=== PATIENT | female | born 1945 | race Caucasian/White ===

== ENCOUNTER → 2016-11-21 | Outpatient (CLI) | payer BC ==
[~2016-11-21] MED LIST: LEVO100T84 PO; LRT5 PO
--- NOTE | 2016-11-21 15:30 | MAMMOGRAPHY REPORT ---
BILATERAL DIGITAL SCREENING MAMMOGRAM WITH CAD: 11/21/2016 CLINICAL HISTORY: Routine screening. Patient has no complaints. TECHNIQUE: Bilateral CC and MLO views were obtained. Current study was also evaluated with a Comput er Aided Detection (CAD) system. COMPARISON: Comparison is made to exam dated: 04/25/2007. BREAST COMPOSITION: There are scattered areas of fibroglandular density in both breasts. FINDINGS: There are scattered benign round calcifications in the breast. A stable grouping of punct ate microcalcifications in the lateral left breast is similar dating back to at least 04/25/2007, an d therefore likely benign. No new suspicious mass, architectural distortion or cluster of microcalc ifications is seen. IMPRESSION: ACR BI-RADS CATEGORY 1: NEGATIVE There is no mammographic evidence of malignancy. A 1 year screening mammogram is recommended. The p atient will receive written notification of the results. Approximately 10% of breast cancers are not detected with mammography. A negative mammographic repor t should not delay biopsy if a clinically suggestive mass is present. Anita Cramer M.D. ay/:11/21/2016 15:10:03 Manager Of Planning: Ya MONTEZ)([place]), [facility] letter sent: Normal 1/2 BI-RADS Code: ACR BI-RADS Category 1: Negative
== END | disposition home or self-care (01) ==
LOC: C.MAMM 13:44
PROVIDERS: ATTEND Internal Medicine
DX: Z12.31 Encounter for screening mammogram for malignant neoplasm of breast (principal)

== ENCOUNTER → 2016-11-22 | Outpatient (CLI) | payer BC ==
[2016-11-22 10:27] LABS: ALT/SGPT 19 U/L (12-78); AST/SGOT 18 U/L (15-37); BLOOD UREA NITROGEN 19 mg/dl (7-18); CALCIUM 8.8 mg/dl (8.5-10.1); CARBON DIOXIDE 26 mmol/L (21-32); CHLORIDE 110 mmol/L (98-107); GLUCOSE 86 mg/dl (70-99); POTASSIUM 3.9 mmol/L (3.5-5.1); SODIUM 144 mmol/L (136-145); TRIGLYCERIDES 107 mg/dl (0-150); VERY LOW DENSITY LIPOPROT CALC 21 mg/dl
[2016-11-22 10:40] LABS: ALB/GLOB RATIO 0.8 (0.9-2); ALKALINE PHOSPHATASE 130 U/L (45-117); CHOLESTEROL 152 mg/dl (0-200); CHOLESTEROL/HDL RATIO 3.2; HDL CHOLESTEROL 48 mg/dl; LDL CHOLESTEROL CALCULATED 83 mg/dl
== END | disposition home or self-care (01) ==
LOC: C.LAB1850 09:04
PROVIDERS: ATTEND Internal Medicine
DX: E78.1 Pure hyperglyceridemia (principal); E55.9 Vitamin D deficiency, unspecified; M85.80 Other specified disorders of bone density and structure, unspecified site; E03.9 Hypothyroidism, unspecified

== ENCOUNTER → 2017-03-08 | Outpatient (CLI) | payer BC ==
--- NOTE | 2017-03-08 10:25 | DIAGNOSTIC IMAGING REPORT ---
ABDOMINAL ULTRASOUND, RIGHT UPPER QUADRANT HISTORY: Right upper quadrant pain. Diarrhea. COMPARISON: None. FINDINGS: Pancreas: The pancreatic tail is obscured by overlying bowel gas. The remaining portions of the pancreas are within normal limits. Liver: The liver is echogenic consistent with fatty change. There is a 1.7 cm cyst within the right hepatic lobe adjacent to the gallbladder fossa. Gallbladder: No gallbladder wall thickening. There are few gallstones with the largest measuring 1.8 cm. CBD: 4 mm. Right kidney: No hydronephrosis. A 2 cm upper pole cyst. IMPRESSION: 1. Cholelithiasis. No gallbladder wall thickening. 2. Hepatic and right renal cysts. Electronically signed by: Justus Wise M.D. 03/08/2017 10:23 AM Dictated Date/Time: 03/08/2017 10:20 AM
== END | disposition home or self-care (01) ==
LOC: C.ULTR 09:04
PROVIDERS: ATTEND Internal Medicine
DX: K80.20 Calculus of gallbladder without cholecystitis without obstruction (principal); N28.1 Cyst of kidney, acquired; K76.89 Other specified diseases of liver; R19.7 Diarrhea, unspecified; R10.11 Right upper quadrant pain

== ENCOUNTER → 2017-08-30 | Outpatient (CLI) | payer BC ==
[2017-08-30 10:13] LABS: HEMATOCRIT 43.7 % (37-47); MEAN CELL VOLUME 91.6 fL (80-100); MEAN CORPUSCULAR HGB CONC 32.7 g/dl (32-36); MEAN PLATELET VOLUME 11.1 fL (7.4-10.4); PLATELET COUNT 198 K/uL (130-400); RED BLOOD COUNT 4.77 M/uL (4.2-5.4); WHITE BLOOD COUNT 5.76 K/uL (4.8-10.8)
[2017-08-30 10:41] LABS: BLOOD UREA NITROGEN 19 mg/dl (7-18); BUN/CREATININE RATIO 17.2 (10-20); CALCIUM 8.9 mg/dl (8.5-10.1); CARBON DIOXIDE 27 mmol/L (21-32); CHLORIDE 107 mmol/L (98-107); CREATININE 1.11 mg/dl (0.60-1.20); GLUCOSE 84 mg/dl (70-99); SODIUM 140 mmol/L (136-145)
[2017-08-30 10:54] LABS: ALB/GLOB RATIO 0.8 (0.9-2); ALKALINE PHOSPHATASE 141 U/L (45-117); ALT/SGPT 21 U/L (12-78); AST/SGOT 20 U/L (15-37); CHOLESTEROL 173 mg/dl (0-200); CHOLESTEROL/HDL RATIO 3.4; HDL CHOLESTEROL 51 mg/dl; LDL CHOLESTEROL CALCULATED 93 mg/dl; TRIGLYCERIDES 144 mg/dl (0-150); VERY LOW DENSITY LIPOPROT CALC 29 mg/dl
== END | disposition home or self-care (01) ==
LOC: C.LAB1850 09:25
PROVIDERS: ATTEND Internal Medicine
DX: E55.9 Vitamin D deficiency, unspecified (principal); E03.9 Hypothyroidism, unspecified; E78.1 Pure hyperglyceridemia; R19.7 Diarrhea, unspecified

== ENCOUNTER → 2017-10-03 | Outpatient (CLI) | payer BC ==
[~2017-10-03] MED LIST changes: +ASPCH81X PO; +CHOL20009 PO; +LEVO125T5 PO
--- NOTE | 2017-10-03 15:28 | DIAGNOSTIC IMAGING REPORT ---
CERVICAL SPINE 2 OR 3 VIEWS HISTORY: Pain. Neuropathy. R20.0 Numbness of [id number] COMPARISON: None. FINDINGS: The cervical spine is visualized from C1 through the superior endplate of T1. There is no fracture. Mild reversal of the normal cervical curvature. Moderate degenerative disc change primarily from C5 through C7. Prevertebral soft tissues and the atlantodens interval are intact. IMPRESSION: Moderate degenerative disc change from C5 through C7. Muscle spasm. Osteopenia. The above report was generated using voice recognition software. It may contain grammatical, syntax or spelling errors. Electronically signed by: Shabbir Orr M.D. 10/03/2017 3:26 PM Dictated Date/Time: 10/03/2017 3:26 PM
== END | disposition home or self-care (01) ==
LOC: C.RAD1850 15:03
PROVIDERS: ATTEND Internal Medicine
DX: R20.0 Anesthesia of skin (principal); M50.322 Other cervical disc degeneration at C5-C6 level; M50.323 Other cervical disc degeneration at C6-C7 level; M62.838 Other muscle spasm; M85.88 Other specified disorders of bone density and structure, other site

== ENCOUNTER → 2017-10-22 | Day surgery (SDC) | payer BC ==
[2017-10-04 08:56] VITALS: Ht 167.6 cm; Wt 86.4 kg
[~2017-10-22] VITALS: Ht 167.6 cm; Wt 86.4 kg
[~2017-10-22] MED LIST changes: -LEVO100T84 PO; +LIDOCAINE HCL 2% 2 ML VIAL (20MG/ML) ONE; -LRT5 PO; +PROPOFOL IV EMULSION 10 MG/ML 20 ML VIAL IV ONE
--- NOTE | 2017-10-22 12:05 | Endo History and Physical ---
History & Physical Date of Service: Oct 22, 2017. Chief Complaint: 10 YEAR SCREENING Referring Physician: DR WRAY History of Present Illness 72 yo CF who presents for screening colonoscopy. Past Surgical History Hx Cardiac Surgery: No Hx Internal Defibrillator: No Hx Pacemaker: No Hx Abdominal Surgery: Yes (TUBAL LIGATION) Hx of Implantable Prosthesis: No Hx Post-Op Nausea and Vomiting: No Hx Cancer Surgery: No Hx Thoracic Surgery: No Hx Orthopedic: No Hx Urinary Tract Surgery: No Family History None Social History Smoking Status: Never Smoker Hx Substance Use: No Hx Alcohol Use: No Allergies Coded Allergies: NO KNOWN DRUG ALLERGIES (Verified Allergy, Unknown, ., 10/22/17) Current Medications Reported Home Medications Medications Dose Route/Sig Max Daily Dose Days Date Category Aspirin Chewable (Aspirin) 81 Mg Chew 2 Tab PO QAM 10/04/17 Reported Vitamin D (Cholecalciferol) 2,000 Unit Tab 1 Tab PO QAM 10/04/17 Reported Levothyroxine Sodium 125 Mcg Tab 1 Tab PO HS 10/04/17 Reported Vital Signs Weight (Kilograms): 86.36 Height (Feet): 5 Height (Inches): 6 Date Time Temp Pulse Resp B/P (MAP) Pulse Ox O2 Delivery O2 Flow Rate FiO2 10/22/17 11:40 36.5 79 20 158/82 (107) 95 Room Air Physical Exam General Appearance: WD/WN, no apparent distress Respiratory/Chest: Auscultation: breath sounds normal Cardiovascular: Heart Auscultation: RRR Abdomen: Bowel Sounds: normal Inspection & Palpation: soft, non-distended, no tenderness, guarding & rebound Assessment and Plan Assessment: 72 yo CF who presents for screening colonoscopy. Plan: Proceed with colonoscopy.
--- NOTE | 2017-10-22 13:21 | GI REPORT ---
Procedure Date: 10/22/2017 12:12 PM Procedure: Colonoscopy Indications: Screening for colorectal malignant neoplasm Medicines: Monitored Anesthesia Care Complications: No immediate complications. Estimated Blood Loss: Estimated blood loss: none. Procedure: Pre-Anesthesia Assessment: - Prior to the procedure, a History and Physical was performed, and patient medications and allergies were reviewed. The patient's tolerance of previous anesthesia was also reviewed. The risks and benefits of the procedure and the sedation options and risks were discussed with the patient. All questions were answered, and informed consent was obtained. Prior Anticoagulants: The patient has taken no previous anticoagulant or antiplatelet agents. ASA Grade Assessment: III - A patient with severe systemic disease. After reviewing the risks and benefits, the patient was deemed in satisfactory condition to undergo the procedure. After I obtained informed consent, the scope was passed under direct vision. Throughout the procedure, the patient's blood pressure, pulse, and oxygen saturations were monitored continuously. The scope was introduced through the anus and advanced to the terminal ileum. The colonoscopy was performed without difficulty. The patient tolerated the procedure well. The quality of the bowel preparation was good. The terminal ileum, ileocecal valve, appendiceal orifice, and rectum were photographed. Findings: The perianal and digital rectal examinations were normal. A 4 mm polyp was found in the transverse colon. The polyp was sessile. The polyp was removed with a cold snare. Resection and retrieval were complete. Multiple small-mouthed diverticula were found in the sigmoid colon. Non-bleeding internal hemorrhoids were found during retroflexion. The hemorrhoids were small. Impression: - One 4 mm polyp in the transverse colon, removed with a cold snare. Resected and retrieved. - Diverticulosis in the sigmoid colon. - Non-bleeding internal hemorrhoids. Recommendation: - Resume previous diet. - Continue present medications. - Repeat colonoscopy for surveillance based on pathology results. - Return to primary care physician as previously scheduled. Scott Mae, DO 10/22/2017 1:21:23 PM This report has been signed electronically. Note Initiated On: 10/22/2017 12:12 PM I attest to the content of the Intraoperative Record and orders documented therein, exceptions below
--- NOTE | 2017-10-22 13:30 | Discharge Instructions ---
Endoscopy Patient Instructions Date / Procedure(s) Performed Oct 22, 2017. Colonoscopy Allergy Information Coded Allergies: NO KNOWN DRUG ALLERGIES (Verified Allergy, Unknown, ., 10/22/17) Discharge Date / Findings Oct 22, 2017. Colon polyp Diverticulosis Internal hemorrhoids Medication Instructions Stopped Medication(s): ASPIRIN-10/21/17 OK to resume all medications today as prescribed Reported Home Medications Medications Dose Route/Sig Max Daily Dose Days Date Category Aspirin Chewable (Aspirin) 81 Mg Chew 2 Tab PO QAM 10/04/17 Reported Vitamin D (Cholecalciferol) 2,000 Unit Tab 1 Tab PO QAM 10/04/17 Reported Levothyroxine Sodium 125 Mcg Tab 1 Tab PO HS 10/04/17 Reported Provider Instructions Activity Restrictions - No exercising or heavy lifting for 24 hours. - Do not drink alcohol the day of the procedure. - Do not drive a car or operate machinery until the day after the procedure. - Do not make any important decisions or sign important papers in 24 hours after the procedure. Following Day: - Return to full activity which may include returning to work/school. Diet Start your diet with liquids and light foods (jello, soup, juice, toast). Then eat your usual diet if not nauseated. Treatment For Common After Affects For mild abdominal pain, bloating, or excessive gas: - Rest - Eat lightly - Lie on right side Follow-Up Information Follow-up with DR WRAY as scheduled Anesthesia Information What You Should Know You have had a procedure that required some medicine to reduce anxiety and discomfort. This treatment is called moderate sedation. After receiving the treatment, you may be sleepy, but you will be able to breathe on your own. The effects of the treatment may last for several hours. Follow these instructions along with Activity/Diet recommendations noted above: * Do NOT do anything where dizziness or clumsiness would be dangerous. * Rest quietly at home today, then you can be up and about tomorrow. * Have a responsible person stay with you the rest of today. * You may have had an I.V. today. If so, you may take the dressing off later today. Recommendations Call your doctor if: * Trouble breathing * Continuous vomiting for more than 24 hours * Temperature above 101 degrees * Severe abdominal pain or bloating * Pain not relieved by pain medicine ordered * There is increased drainage or redness from any incision * A large amount of rectal bleeding greater than 2-3 tablespoons. (If you had a polyp/s removed or have hemorrhoids, a small amount of blood - from the rectum is to be expected.) * You have any unanswered questions or concerns. IN THE EVENT OF A SERIOUS EMERGENCY, GO TO THE NEAREST EMERGENCY ROOM Your discharge instructions were prepared by provider Scott Mae. Patient Instructions Signature Page Arlet Hodges Patient (or Guardian) Signature/Date: I have read and understand the instructions given to me by my caregivers. Caregiver/RN/Doctor Signature/Date: The above-named patient and/or guardian has received patient instructions on this date. + Original Patient Signature Page (only) stays with chart. Please make copy for patient.
--- NOTE | 2017-10-22 13:44 | Anesthesiology Progress Note ---
Anesthesia Post Op Note Date & Time Oct 22, 2017 at 13:43 Vital Signs Pain Intensity: 0 Vital Signs Past 12 Hours Date Time Temp Pulse Resp B/P (MAP) Pulse Ox O2 Delivery O2 Flow Rate FiO2 10/22/17 13:27 79 18 118/69 (85) 96 Room Air 10/22/17 13:12 82 12 112/66 (81) 96 Room Air 10/22/17 11:40 36.5 79 20 158/82 (107) 95 Room Air Notes Mental Status: alert / awake / arousable, participated in evaluation Pt Amnestic to Procedure: Yes Nausea / Vomiting: adequately controlled Pain: adequately controlled Airway Patency, RR, SpO2: stable & adequate BP & HR: stable & adequate Hydration State: stable & adequate Anesthetic Complications: no major complications apparent
[2017-10-22 13:51] VITALS: BP 125/62; PULSE 79; O2SAT 96
== END | disposition home or self-care (01) ==
LOC: C.GI 11:19
PROVIDERS: ATTEND Internal Medicine
DX: Z12.11 Encounter for screening for malignant neoplasm of colon (principal); D12.3 Benign neoplasm of transverse colon; K57.30 Diverticulosis of large intestine without perforation or abscess without bleeding; K64.8 Other hemorrhoids; I77.1 Stricture of artery; K21.9 Gastro-esophageal reflux disease without esophagitis; E66.9 Obesity, unspecified; M19.90 Unspecified osteoarthritis, unspecified site; E03.9 Hypothyroidism, unspecified; Z79.82 Long term (current) use of aspirin; Z90.89 Acquired absence of other organs; Z86.73 Personal history of transient ischemic attack (TIA), and cerebral infarction without residual deficits

== ENCOUNTER → 2017-10-23 | Outpatient (CLI) | payer BC ==
[~2017-10-23] MED LIST changes: +OPTIRAY 320 IV PRN
--- NOTE | 2017-10-23 08:32 | DIAGNOSTIC IMAGING REPORT ---
CT ANGIOGRAPHY NECK COMBO CT DOSE: 948.80 mGy.cm CLINICAL HISTORY: Carotid stenosis TECHNIQUE: Unenhanced images were obtained through the neck. CT angiography was performed during the administration of 94 cc of Optiray 320. MIP imaging was performed. A dose lowering technique was utilized adhering to the principles of ALARA. COMPARISON STUDY: None. FINDINGS: There is no evidence of significant stenosis involving the right common or internal carotid artery. There is no evidence of dissection or aneurysm. There is no evidence of significant stenosis involving the left common or internal carotid artery. There is no evidence of dissection or aneurysm. There is mild calcific plaque at the level of the left carotid bulb. There is no evidence of vertebral artery stenosis or dissection. There is a right maxillary sinus air-fluid level. There is a multinodular thyroid. IMPRESSION: 1. No evidence of carotid or vertebral artery stenosis or dissection. Electronically signed by: Alex Olvio M.D. 10/23/2017 8:31 AM Dictated Date/Time: 10/23/2017 8:24 AM
== END | disposition home or self-care (01) ==
LOC: C.CTS 08:05
PROVIDERS: ATTEND Physician Assistant
DX: I65.23 Occlusion and stenosis of bilateral carotid arteries (principal)

== ENCOUNTER 2020-12-20 01:38 | Inpatient (IN) ==
[2020-12-20 02:21] LABS: Basophils # (auto) 0.02 K/uL (0-0.2); Basophils % (auto) 0.3 %; Eosinophils # (auto) 0.16 K/uL (0-0.5); Eosinophils % (auto) 2.5 %; Hematocrit (blood only) 40.9 % (37-47); Immature Granulocytes # (auto) 0.01 K/uL (0.00-0.02); Immature Granulocytes % (auto) 0.2 %; Lymphocytes # (auto) 1.68 K/uL (1.2-3.4); Lymphocytes % (auto) 25.7 %; Mean Corpuscular Hemoglobin 30.4 pg (25-34); Mean Corpuscular Hgb Conc 34.2 g/dL (32-36); Mean Corpuscular Volume 88.9 fL (80-100); Mean Platelet Volume 10.6 fL (7.4-10.4); Monocytes # (auto) 0.64 K/uL (0.11-0.59); Monocytes % (auto) 9.8 %; Neutrophils # (auto) 4.02 K/uL (1.4-6.5); Neutrophils % (auto) 61.5 %; Platelet Count 107 K/uL (130-400); RDW Coefficient of Variation 12.9 % (11.5-14.5); RDW Standard Deviation 41.7 fL (36.4-46.3); White Blood Count 6.53 K/uL (4.8-10.8)
--- NOTE | 2020-12-20 02:32 | Emergency Department Note ---
History of Present Illness General Chief complaint: Neuro Symptoms/Deficit Stated complaint: SLURRED SPEECH,DIZZINESS,HOT SWEATY,NAUSEA Time Seen by Provider: 12/20/20 01:47 Source: patient Mode of arrival: ambulatory Limitations: no limitations History of Present Illness Provider complaint: Dizziness, flushing, headache Onset (ago): hour(s) 2 Location: head Radiation: non-radiation Severity: moderate Maximum Pain Intensity: 4 Quality: + constant Relieved By: + none Exacerbated By: + movement Associated symptoms: + headaches; no chest pain, no cough, no fever/chills, no nausea/vomiting and no shortness of breath Treatments prior to arrival: none This is a 75-year-old female presents the emergency department after an abrupt onset of dizziness and overwhelming feeling of warmth with accompanying sweating that began at midnight. Patient states she has had intermittent similar episodes in the past although she felt this was more severe. She states she has previously seen neurology due to intermittent episodes of dizziness, headaches, and double vision. She had previously seen Dr. Ford, however could not tolerate the medications that he had recommended. After new imaging had also revealed a small aneurysm, she was referred to neurosurgery at [place] who she sees once a year. Patient states she does take a blood thinner due to history of DVTs. Patient also takes medication for thyroid disorder. Patient denies any change in her medications or other new medications. Patient denies any recent illness. Patient states the dizziness and sweating were present for about 10 minutes and then began to improve, and have since resolved. However, as though symptoms were improving, she began to develop a headache. Patient states the headache is frontal and behind her eyes bilaterally. Patient states Dr. Ford told her she gets basilar migraines. On review of EMR while we were talking, Dr. Ford's note also lists ocular migraines. Patient denies any recent trauma or injury. No other recent fevers, chills, URI symptoms, or other known sick contacts. She denies any accompanying numbness or tingling, neck or back pain, chest pain, trouble breathing. Patient states she feels as though her mouth is very dry and it is affecting her speech. Pt seen during a time of high acuity and national emergency pandemic while wearing PPE. Home Medications Medication Instructions Recorded Confirmed Type cholecalciferol (vitamin D3) 1,000 unit PO DAILY 06/02/18 12/20/20 History [Vitamin D3] levothyroxine 125 mcg tablet 125 mcg PO DAILY #90 tab 09/19/20 12/20/20 Rx rivaroxaban 20 mg tablet 20 mg PO DAILY #90 tab 12/06/20 12/20/20 Rx Allergies Allergy/AdvReac Type Severity Reaction Status Date / Time verapamil AdvReac Intermediate hypotension Verified 12/20/20 02:24 Past Med/Surg History Medical History (Updated 12/21/20 @ 07:19 by Vero Banks DO) Asthma Dermatographia Diverticulosis Essential hypertriglyceridemia History of blood clots History of broken leg History of mitral valve insufficiency Hypothyroidism Internal hemorrhoids Osteopenia Transient ischemic attack, acute Tubular adenoma of colon Vitamin D deficiency Surgical History History of tonsillectomy Family History Sister Breast cancer Hypertension Uncle Stroke Mother Diabetes Brother Hypertension Other Kidney stone Seizures Denies family history of Colon cancer Ovarian cancer Prostate cancer Myocardial infarction Social History Smoking Status: Never smoker Second Hand Exposure: No; Hx Alcohol Use: No Hx Substance Use: No Preferred Language: Bur[place]ian Communication Ability: Effective Visual Impairment: No Limitations Hearing Ability: Normal Nat Instructor Required: No Beliefs That Will Affect Care: None marital status: Current Living Situation: Family current occupational status: retired Feels Safe at Home: Yes Dental Care, Regularly: Yes Physical Activity Frequency: Daily Seatbelt Use: always Sunscreen Use: Yes Assistive Devices: Glasses Review of Systems See HPI for pertinent positives & negatives. and A total of 10 systems reviewed and were otherwise negative Physical Exam Vital Signs Vital Signs - 24 hr 12/20/20 07:30 12/20/20 07:32 12/20/20 08:00 Pulse Rate [Finger] 74 Pulse Rate from SpO2 Sensor 74 86 Respiratory Rate 16 Respiratory Effort / Characteristics Respiratory Depth Blood Pressure 151/83 H 161/105 H Blood Pressure [Right Arm] 151/83 H Blood Pressure Mean 105 123 Blood Pressure Mean [Right Arm] 105 Pulse Oximetry 96 96 96 Oxygen Delivery Method 12/20/20 08:30 12/20/20 08:32 12/20/20 08:34 Pulse Rate [Finger] 77 Pulse Rate from SpO2 Sensor 80 73 Respiratory Rate 16 Respiratory Effort / Characteristics Non-Labored Respiratory Depth Normal Blood Pressure 154/87 H Blood Pressure [Right Arm] 154/87 H Blood Pressure Mean 109 Blood Pressure Mean [Right Arm] 109 Pulse Oximetry 95 95 96 Oxygen Delivery Method Room Air GENERAL: alert, well appearing, well nourished, no distress, non-toxic EYE EXAM: normal conjunctiva, PERRL and EOM's grossly intact, no nystagmus OROPHARYNX: no exudate, no erythema, lips, buccal mucosa, and tongue normal and mucous membranes are moist NECK: supple, no nuchal rigidity, no adenopathy, non-tender, FROM LUNGS: Clear to auscultation. Normal chest wall mechanics, no w/r/r HEART: no murmurs, S1 normal and S2 normal ABDOMEN: abdomen soft, non-tender, normo-active bowel sounds, no masses, no rebound or guarding. BACK: Back is symmetrical on inspection and there is no deformity, no midline tenderness, no CVA tenderness. SKIN: no rashes and no bruising UPPER EXTREMITIES: upper extremities are grossly normal. FROM, nml pulses b/l. LOWER EXTREMITIES: No pitting edema. FROM, nml pulses b/l. NEURO EXAM: Normal sensorium, cranial nerves II-XII grossly intact, normal speech, no facial droop, no gross weakness of arms, no gross weakness of legs. No pronator drift. Finger to nose intact. Gross sensation intact. No ataxia. Patient walked out of the bathroom under her own power with a steady gait, and was able to put on the gown on in front of myself and her without any difficulty. NIHSS 0. Course Course 0406: Patient updated on results and need for MRI. Patient states symptoms have all since resolved and she is feeling well. 0720: Pt updated on results. 0741: Discussed with Dr. De Jesus. Administered Medications Aspirin (Aspirin 81 Mg Ectab) 81 mg PO [facility] Stop: 01/19/21 13:59 Last Admin: 12/20/20 15:59 Dose: 81 mg Documented by: [id number] Atorvastatin Calcium (Atorvastatin 40 Mg Tab) [facility] [place]: 01/19/21 10:39 Last Admin: 12/20/20 15:58 Dose: 40 mg Documented by: [id number] Levothyroxine Sodium (Levothyroxine Sodium 125 Mcg Tablet) 125 mcg PO [facility] Stop: 01/19/21 13:59 Last Admin: 12/21/20 07:11 Dose: 125 mcg Documented by: [id number] Admin: 12/20/20 15:59 Dose: 125 mcg Documented by: [id number] Rivaroxaban (Rivaroxaban 20 Mg Tab) 20 mg PO DAILY [facility] Stop: 01/19/21 10:39 Last Admin: 12/20/20 15:58 Dose: 20 mg Documented by: [id number] Verapamil HCl (Verapamil Hcl 40 Mg Tab) 40 mg PO BID [facility] Stop: 01/19/21 10:44 Last Admin: 12/20/20 20:17 Dose: 40 mg Documented by: [id number] Admin: 12/20/20 15:59 Dose: 40 mg Documented by: [id number] Vitamin D (Cholecalciferol 1,000 Units 25 Mcg Tab) 1,000 units PO DAILY [facility] Stop: 01/19/21 13:59 Last Admin: 12/20/20 15:59 Dose: 1,000 units Documented by: [id number] Discontinued Medications Aspirin (Aspirin Chew 324 Mg) 324 mg PO NOW STA Stop: 12/20/20 07:40 Last Admin: 12/20/20 08:51 Dose: 324 mg Documented by: [id number] Gadobutrol (Gadobutrol 65ml Vial) 8.7 ml IV ONCE ONE Stop: 12/20/20 06:01 Last Admin: 12/20/20 05:35 Dose: 8.7 ml Documented by: [id number] Sodium Chloride (Nss 1000ml) 1,000 mls @ 125 mls/hr IV .Q8H [facility] Stop: 01/19/21 01:59 Last Admin: 12/20/20 13:38 Dose: Not Given Documented by: [id number] Infusion: 12/20/20 09:29 Dose: 0 mls/hr Documented by: [id number] Admin: 12/20/20 02:37 Dose: 125 mls/hr Documented by: [id number] Ioversol (Optiray 320 125ml) 125 ml IV ONCE ONE Stop: 12/20/20 03:23 Last Admin: 12/20/20 03:22 Dose: 118 ml Documented by: [id number] Medical Decision Making Differential Diagnosis Differential Diagnosis includes but is not limited to headache, tension headache, cluster headache, migraine, subarachnoid hemorrhage, meningitis, mass, central venous thrombus, concussion, trauma and epidural/subdural hemorrhage. Medical Records Attestation: I reviewed the patient's medical records. Home Medications Current Medication List: was personally reviewed by me Laboratory Data Attestation: I reviewed the patient's lab results. Result diagrams: 12/20/20 02:14 12/20/20 02:14 Lab Results 12/20/20 12/20/20 12/20/20 Range/Units 02:14 02:14 02:14 WBC 6.53 (4.8-10.8) K/uL RBC 4.60 (4.2-5.4) M/uL Hgb 14.0 (12.0-16.0) g/dL Hct 40.9 (37-47) % MCV 88.9 (80-100) fL MCH 30.4 (25-34) pg MCHC 34.2 (32-36) g/dL RDW Std Deviation 41.7 (36.4-46.3) fL RDW Coeff of Sally 12.9 (11.5-14.5) % Plt Count 107 L (130-400) K/uL MPV 10.6 H (7.4-10.4) fL Immature Gran % (Auto) 0.2 % Neut % (Auto) 61.5 % Lymph % (Auto) 25.7 % [place] % (Auto) 9.8 % Eos % (Auto) 2.5 % Baso % (Auto) 0.3 % Neut # (Auto) 4.02 (1.4-6.5) K/uL Lymph # (Auto) 1.68 (1.2-3.4) K/uL [place] # (Auto) 0.64 H (0.11-0.59) K/uL Eos # (Auto) 0.16 (0-0.5) K/uL Baso # (Auto) 0.02 (0-0.2) K/uL Immature Gran # (Auto) 0.01 (0.00-0.02) K/uL PT 11.9 (9.0-12.0) Seconds INR 1.2 H (0.9-1.1) Sodium 140 (136-145) mmol/L Potassium 3.8 (3.5-5.1) mmol/L Chloride 109 H (98-107) mmol/L Carbon Dioxide 26 (21-32) mmol/L Anion Gap 5.0 (3-11) BUN 31 H (7-18) mg/dl Creatinine 1.53 H (0.6-1.2) mg/dl Est Cr Clr Drug Dosing 34.3 ml/min Est GFR ( Amer) 37.6 Est GFR (Non-Af Amer) 32.5 BUN/Creatinine Ratio 20.3 H (10-20) Glucose 110 H (70-99) mg/dl Calcium 9.1 (8.5-10.1) mg/dl Magnesium 2.3 (1.8-2.4) mg/dl Total Bilirubin 0.3 (0.2-1) mg/dl AST 21 (15-37) U/L ALT 26 (12-78) U/L Alkaline Phosphatase 164 H (45-117) U/L Troponin I < 0.015 (0-0.045) ng/ml NT-Pro-B Natriuret Pep 152 (0-1800) pg/ml Total Protein 7.9 (6.4-8.2) gm/dl Albumin 3.5 (3.4-5.0) gm/dl Globulin 4.4 H (2.5-4.0) gm/dl Albumin/Globulin Ratio 0.8 L (0.9-2) TSH 4.380 (0.300-4.500) uIu/ml Urine Color Urine Appearance (Clear) Urine pH (4.5-7.5) Ur Specific [place]ile (1.000-1.030) Urine Protein (Negative) Urine Glucose (UA) (Negative) Urine Ketones (Negative) Urine Blood (Negative) Urine Nitrite (Negative) Urine Bilirubin (Negative) Urine Urobilinogen (Negative) Ur Leukocyte Esterase (Negative) Urine WBC (Auto) (0-5) /hpf Urine RBC (Auto) (0-4) /hpf U Hyaline Cast (Auto) (0-5) /lpf U Epithel Cells (Auto) (0-5) /lpf Urine Bacteria (Auto) (Negative) COVID-19 Eval Order SARS-CoV-2 (PCR) (Negative) Influenza Type A (PCR) (Neg) Influenza Type B (PCR) (Neg) RSV (RT-PCR) (Neg) 12/20/20 12/20/20 12/20/20 Range/Units 02:29 07:49 07:49 WBC (4.8-10.8) K/uL RBC (4.2-5.4) M/uL Hgb (12.0-16.0) g/dL Hct (37-47) % MCV (80-100) fL MCH (25-34) pg MCHC (32-36) g/dL RDW Std Deviation (36.4-46.3) fL RDW Coeff of Sally (11.5-14.5) % Plt Count (130-400) K/uL MPV (7.4-10.4) fL Immature Gran % (Auto) % Neut % (Auto) % Lymph % (Auto) % [place] % (Auto) % Eos % (Auto) % Baso % (Auto) % Neut # (Auto) (1.4-6.5) K/uL Lymph # (Auto) (1.2-3.4) K/uL [place] # (Auto) (0.11-0.59) K/uL Eos # (Auto) (0-0.5) K/uL Baso # (Auto) (0-0.2) K/uL Immature Gran # (Auto) (0.00-0.02) K/uL PT (9.0-12.0) Seconds INR (0.9-1.1) Sodium (136-145) mmol/L Potassium (3.5-5.1) mmol/L Chloride (98-107) mmol/L Carbon Dioxide (21-32) mmol/L Anion Gap (3-11) BUN (7-18) mg/dl Creatinine (0.6-1.2) mg/dl Est Cr Clr Drug Dosing ml/min Est GFR ( Amer) Est GFR (Non-Af Amer) BUN/Creatinine Ratio (10-20) Glucose (70-99) mg/dl Calcium (8.5-10.1) mg/dl Magnesium (1.8-2.4) mg/dl Total Bilirubin (0.2-1) mg/dl AST (15-37) U/L ALT (12-78) U/L Alkaline Phosphatase (45-117) U/L Troponin I (0-0.045) ng/ml NT-Pro-B Natriuret Pep (0-1800) pg/ml Total Protein (6.4-8.2) gm/dl Albumin (3.4-5.0) gm/dl Globulin (2.5-4.0) gm/dl Albumin/Globulin Ratio (0.9-2) TSH (0.300-4.500) uIu/ml Urine Color Yellow Urine Appearance Clear (Clear) Urine pH 6.0 (4.5-7.5) Ur Specific [place] 1.014 (1.000-1.030) Urine Protein Negative (Negative) Urine Glucose (UA) Negative (Negative) Urine Ketones Negative (Negative) Urine Blood Trace H (Negative) Urine Nitrite Negative (Negative) Urine Bilirubin Negative (Negative) Urine Urobilinogen Negative (Negative) Ur Leukocyte Esterase Negative (Negative) Urine WBC (Auto) 1-5 (0-5) /hpf Urine RBC (Auto) 0-4 (0-4) /hpf U Hyaline Cast (Auto) 1-5 (0-5) /lpf U Epithel Cells (Auto) >30 H (0-5) /lpf Urine Bacteria (Auto) Negative (Negative) COVID-19 Eval Order CovFluRsv at [facility] SARS-CoV-2 (PCR) NEGATIVE (Negative) Influenza Type A (PCR) Negative (Neg) Influenza Type B (PCR) Negative (Neg) RSV (RT-PCR) Negative (Neg) Imaging Data Radiologist's Impression: Head CT 12/20/20 01:56 CT head/brain wo con CLINICAL HISTORY: Dizziness, visual changes, headache COMPARISON STUDY: MRI performed October 2019 TECHNIQUE: Axial CT of the brain is performed from the vertex to the skull base. IV contrast was not administered for this examination. A dose lowering technique was utilized adhering to the principles of ALARA. CT DOSE: FINDINGS: No intra or extra-axial mass lesions are visualized. There is no CT evidence of acute cortical infarction. There is no evidence of midline shift. There is no acute hemorrhage. No calvarial fractures are visualized. There are patchy white matter hypodensities likely on a small vessel basis. There are scattered lacunar infarcts present within the periventricular white matter and left cerebellar hemisphere. There is no evidence of pathologic ventricular dilatation. There is no evidence of acute sinusitis IMPRESSION: 1. Old lacunar infarcts. No acute intracranial findings. ACT 112: Negative or not required by law. Electronically signed by: Alex Olivo M.D. 12/20/2020 7:02 AM Head CTA 12/20/20 02:00 CT angio head w con CLINICAL HISTORY: Headache, dizziness, visual changes TECHNIQUE: CT angiography of the head was performed in a dynamic helical fashion during intravenous administration of 118 cc of Optiray 320. MIP imaging was performed. A dose lowering technique was utilized adhering to the principles of ALARA. CT DOSE: 1172.11 mGy.cm COMPARISON STUDY: MRI the brain dated 10/22/2019 FINDINGS: There are no major intracranial branch occlusions. There is no evidence for major intracranial stenosis. The dural venous sinuses appear patent. There is a small 3 mm aneurysm versus infundibulum at the M2 segment of the right MCA IMPRESSION: 1. 3 mm aneurysm versus infundibulum at the M2 segment of the right MCA. 2. No evidence of major intracranial branch occlusion ACT 112: Negative or not required by law. Electronically signed by: Alex Olivo M.D. 12/20/2020 7:37 AM Neck CTA 12/20/20 02:00 CT ANGIOGRAM OF THE NECK CLINICAL HISTORY: Dizziness. Headache. Visual changes. COMPARISON STUDY: CT angiogram of the neck dated 02/24/2020. TECHNIQUE: Following the IV administration of 118 of Optiray 320, CT angiogram of the neck was performed from the aortic arch to the skull base. Images are reviewed in the axial, sagittal, and coronal planes. 3-D MIPS images are created and assessed. IV contrast was administered without complication. All measurements were calculated based on NASCET criteria. A dose lowering technique was utilized adhering to the principles of ALARA. FINDINGS: Thoracic aorta: There is mild atherosclerotic calcification of the thoracic aorta. Visualized portions of the thoracic aorta are normal in caliber. The aortic arch demonstrates standard 3-vessel anatomy. Right carotid arterial system: The right common carotid artery is widely patent, as are the right internal and external carotid arteries. Minimal plaque is seen in the carotid bulb. Left carotid arterial system: The left common carotid artery is widely patent, as are the left internal and Carotid arteries. Mild calcified plaque is noted in the carotid bulb. Vertebral arteries: The vertebral arteries are widely patent and codominant. Subclavian arteries: Widely patent bilaterally. Intracranial vasculature: The visualized brain parenchyma the skull base is normal in appearance. Jugular veins: Widely patent bilaterally. Brain parenchyma: The visualized brain parenchyma the skull base is within normal limits. Lung apices: Mild emphysematous change is noted at the apices. The lung parenchyma is otherwise clear as imaged. Soft tissues: The visualized pharyngeal soft tissues are normal in appearance noting angiographic phase technique. The oropharyngeal airway appears widely patent. The thyroid gland is heterogeneous. The salivary glands are normal in appearance. No cervical lymphadenopathy is seen. Skeletal structures: The skeletal structures are osteopenic. The visualized calvarium at the skull base appears intact. The imaged cervical spine is mainta ined noting multilevel spondylosis. No lytic or blastic lesion is seen. Sinuses and mastoids: Trace mucosal thickening is noted in the left maxillary antrum. The remaining visualized paranasal sinuses are clear. The mastoid air cells are well pneumatized. IMPRESSION: Unremarkable CT angiogram of the neck. No change from 02/24/2020. ACT 112: Negative or not required by law. Electronically signed by: Mathieu Ruth M.D. 12/20/2020 7:23 AM Brain MRI 12/20/20 04:06 MRI OF THE BRAIN WITHOUT AND WITH IV CONTRAST CLINICAL HISTORY: Headache, dizziness, visual changes. Abnormal CT scan. COMPARISON STUDY: Noncontrast head CT dated 12/20/2020 TECHNIQUE: MRI of the brain was performed from the vertex to the skull base utilizing various T1 and T2 weighted sequences. Following the IV administration of 8.7 mL of Gadavist contrast, additional enhanced images were obtained. FINDINGS: Sagittal T1, axial diffusion, proton density and T2 weighted axial, coronal FLAIR, and pre and post axial T1-weighted images were acquired. These were brito pplemented with post gadolinium coronal T1 weighted images. No intra or extra-axial mass lesions are visualized. There is a 4 mm focus of increased signal on diffusion-weighted images in the right morel radiata. This is difficult to confirm on ADC map images however there are no foci of increased T2 signal at this level to indicate T2 shine through. This likely represents a tiny acute/subacute infarct. There is no evidence of ventricular dilatation. Proton density T2-weighted and FLAIR images reveal scattered foci of increased T2 signal within the white matter, likely on a small vessel basis. There are multiple old scattered lacunar infarcts. These involve the cerebellum, basal ganglia, and deep white matter. There are no abnormal flow voids. There is no evidence of pathologic enhancement. IMPRESSION: 1. No evidence of intracranial mass 2. Suspected tiny acute/subacute infarct within the right centrum semiovale 3. Scattered old lacunar infarcts. ACT 112: Negative or not required by law. Electronically signed by: Alex Olivo M.D. 12/20/2020 6:[address] head: Comparison is made to MRI brain on 10/22/2019. Small hypodensity in the left cerebellar hemisphere is new compared to prior exa m but age-indeterminate since then. Possible subacute or chronic infarct. Further evaluation could be performed with MRI. Stable small remote lacunar infarct in left basal ganglia. Probable small remote infarcts in the centrum semiovale. No acute intracranial hemorrhage identified. Radiologist: Steven Esparza MD CTA head: No significant stenosis or occlusion in the central or large intracranial vessels. Probable infundibulum at the M2 segment of the right MCA. Small aneurysm cannot be excluded. Mild atherosclerotic calcifications in the distal ICAs. No significant stenosis. Hypoplastic A1 segment of the left ISABEL is likely congenital or chronic. Radiologist: Steven Esparza MD CTA neck: Comparison is made to prior CTA on 02/24/2020. No significant stenosis, occlusion, or dissection. Mild atherosclerotic changes of the aorta and origins of the great vessels. No significant stenosis. Atherosclerotic calcifications in the left greater than right carotid bulbs. No significant stenosis. Medially coursing ICAs. Mild paraseptal emphysematous changes of the lung apices. Heterogenous thyroid could be further evaluated with nonemergent dedicated ultrasound if clinically indicated. Radiologist: Steven Esparza MD MRI head: Comparison: MRI 10/22/2019 Small focus of hyperintensity on diffusion-weighted images at right morel radiata but without definite corresponding low signal on ADC map is suspicious for tiny acute or subacute infarct (image 13, series 5). Periventricular and scattered T2/flair white matter hyperintensities, nonspecific but most commonly related to chronic small vessel ischemic changes. There are small chronic infarcts and centrum semiovale ovale bilaterally. Other considerations include demyelinating disease. No hemorrhage. No abnormal enhancement. Radiologist: Rodríguez Koenig MD ECG Data Attestation: I personally reviewed and interpreted this ECG as follows: Indication: + other Rate (beats per minute): 70 Rhythm: + normal sinus ECG Intervals/blocks: + Normal QRS and + Normal QT ECG [place]: + Normal ECG Findings: + PVCs MDM Narrative This is a 75-year-old female presents emergency department complaining of dizziness, flushing, and headaches that began abruptly this evening. Symptoms were improving by the time of arrival here although not completely resolved. Patient most concerned about possible stroke. Patient has previously had si milar events although felt this 1 was worse. Patient is also previously been evaluated by neurology. Patient did follow-up at [place] with neurosurgery due to questionable aneurysm found on prior imaging. No intervention otherwise needed per her report in EMR. Patient's vital signs were stable, labs drawn and sent as a precaution and patient sent for CT and CTA. Overnight radiology read suggestive of subacute versus chronic infarct, and also suggested MRI to better evaluate. Patient was in agreement with plan for MRI given by the time CT results were available, all of her symptoms had completely resolved.Follow-up MRI suggestive of acute/subacute infarct. Patient already anticoagulated, due to concern for infarct in the setting of chronic anticoagulation, discussed with her additional inpatient evaluation and management. She verbalized understanding was in agreement with plan. Case discussed with hospitalist. Patient given 1 aspirin in the emergency room. I do not suspect other occult infectious etiology, or electrolyte abnormality. Patient was initially hypertensive here although this resolved without any additional antihypertensive medication. Patient noted to have mildly elevated creatinine, this appears consistent with prior levels in review of EMR. An order was placed for continuous cardiac monitoring. The monitor shows a rate of _80_ with _normal sinus_ rhythm. Patient has no family history of aneurysm. Patient was first seen and observation began at 0147 and was necessary in order to determine etiology of complaints and rule out life-threatening intracranial hemorrhage. Upon re- evaluation, 5 hours of observation revealed that the patient should be admitted. Discharge time at 0741. Impression & Plan Dizziness, Headache, Acute CVA (cerebrovascular accident), Changes in vision, CKD (chronic kidney disease) Discharge Plan Visit Data Chief Complaint: Neuro Symptoms/Deficit Stated Complaint: SLURRED SPEECH,DIZZINESS,HOT SWEATY,NAUSEA ED Provider: Vero Banks Discharge Problem: Dizziness, Headache, Acute CVA (cerebrovascular accident), Changes in vision, CKD (chronic kidney disease) Patient Disposition: Admitted As Inpatient Discharge Instructions Interventions: ED Discharge Assessment Last Done: 12/20/20 13:11 Discharge Problem: Headache Qualifiers: Headache type: unspecified Headache chronicity pattern: acute headache Intractability: not intractable Qualified Code(s): R51.9 - Headache, unspecified CKD (chronic kidney disease) Qualifiers: Chronic kidney disease stage: unspecified stage Qualified Code(s): N18.9 - Chronic kidney disease, unspecified
[2020-12-20 02:35] LABS: INR 1.2 (0.9-1.1); Prothrombin Time 11.9 Seconds (9.0-12.0)
[2020-12-20] MEDS: SODIUM CHLORIDE 0.9% 1000ML 1,000 ML IV SCH ×2 (02:37→13:38)
[2020-12-20 02:39] LABS: Alanine Aminotransferase 26 U/L (12-78); Albumin Level 3.5 gm/dl (3.4-5.0); Aspartate Aminotransferase 21 U/L (15-37); BUN Creatinine Ratio 20.3 (10-20); Blood Urea Nitrogen 31 mg/dl (7-18); Calcium 9.1 mg/dl (8.5-10.1); Carbon Dioxide 26 mmol/L (21-32); Chloride 109 mmol/L (98-107); Creatinine Clr Calc Pharmacy 34.3 ml/min; Est GFR (African American) 37.6; Est GFR (Non-African American) 32.5; Glucose 110 mg/dl (70-99); Magnesium 2.3 mg/dl (1.8-2.4); Potassium 3.8 mmol/L (3.5-5.1); Sodium 140 mmol/L (136-145)
[2020-12-20 02:45] LABS: Appearance Urine Clear (Clear); Bacteria Urine Automated Negative (Negative); Bilirubin Urine Negative (Negative); Blood Urine Trace (Negative); Color Urine Yellow; Epithelial Cell Urine Auto >30 /lpf (0-5); Glucose Urine UA Negative (Negative); Ketones Urine Negative (Negative); Leukocyte Esterase Urine Negative (Negative); Nitrite Urine Negative (Negative); Protein Urine Negative (Negative); RBC Urine Automated 0-4 /hpf (0-4); Specific Gravity Urine 1.014 (1.000-1.030); Urobilinogen Urine Negative (Negative)
[2020-12-20 02:50] LABS: Albumin Globulin Ratio 0.8 (0.9-2); Alkaline Phosphatase 164 U/L (45-117); Bilirubin,Total 0.3 mg/dl (0.2-1); Globulin 4.4 gm/dl (2.5-4.0); NT Pro B Type Natriuretic Pept 152 pg/ml (0-1800); Total Protein 7.9 gm/dl (6.4-8.2); Troponin I < 0.015 ng/ml (0-0.045)
[2020-12-20] MEDS ORDERED: OPTIRAY 320 125ml IV ONE (03:22)
[2020-12-20] MEDS ORDERED: GADOBUTROL 65ML VIAL IV ONE (06:00)
--- NOTE | 2020-12-20 07:00 | Magnetic Resonance Report ---
MRI OF THE BRAIN WITHOUT AND WITH IV CONTRAST CLINICAL HISTORY: Headache, dizziness, visual changes. Abnormal CT scan. COMPARISON STUDY: Noncontrast head CT dated 12/20/2020 TECHNIQUE: MRI of the brain was performed from the vertex to the skull base utilizing various T1 and T2 weighted sequences. Following the IV administration of 8.7 mL of Gadavist contrast, additional enh anced images were obtained. FINDINGS: Sagittal T1, axial diffusion, proton density and T2 weighted axial, coronal FLAIR, and pre and post a xial T1-weighted images were acquired. These were supplemented with post gadolinium coronal T1 weight ed images. No intra or extra-axial mass lesions are visualized. There is a 4 mm focus of increased signal on diffusion-weighted images in the right morel radiata. T his is difficult to confirm on ADC map images however there are no foci of increased T2 signal at thi s level to indicate T2 shine through. This likely represents a tiny acute/subacute infarct. There is no evidence of ventricular dilatation. Proton density T2-weighted and FLAIR images reveal scattered foci of increased T2 signal within the w tia matter, likely on a small vessel basis. There are multiple old scattered lacunar infarcts. These involve the cerebellum, basal ganglia, and deep white matter. There are no abnormal flow voids. There is no evidence of pathologic enhancement. IMPRESSION: 1. No evidence of intracranial mass 2. Suspected tiny acute/subacute infarct within the right centrum semiovale 3. Scattered old lacunar infarcts. ACT 112: Negative or not required by law. Electronically signed by: Alex Olivo M.D. 12/20/2020 6:59 AM
--- NOTE | 2020-12-20 07:04 | CT Scan Report ---
CT head/brain wo con CLINICAL HISTORY: Dizziness, visual changes, headache COMPARISON STUDY: MRI performed October 2019 TECHNIQUE: Axial CT of the brain is performed from the vertex to the skull base. IV contrast was not administered for this examination. A dose lowering technique was utilized adhering to the principles of ALARA. CT DOSE: FINDINGS: No intra or extra-axial mass lesions are visualized. There is no CT evidence of acute cortical infarc tion. There is no evidence of midline shift. There is no acute hemorrhage. No calvarial fractures ar e visualized. There are patchy white matter hypodensities likely on a small vessel basis. There are scattered lacun ar infarcts present within the periventricular white matter and left cerebellar hemisphere. There is no evidence of pathologic ventricular dilatation. There is no evidence of acute sinusitis IMPRESSION: 1. Old lacunar infarcts. No acute intracranial findings. ACT 112: Negative or not required by law. Electronically signed by: Alex Olivo M.D. 12/20/2020 7:02 AM
--- NOTE | 2020-12-20 07:24 | CT Scan Report ---
CT ANGIOGRAM OF THE NECK CLINICAL HISTORY: Dizziness. Headache. Visual changes. COMPARISON STUDY: CT angiogram of the neck dated 02/24/2020. TECHNIQUE: Following the IV administration of 118 of Optiray 320, CT angiogram of the neck was perfor med from the aortic arch to the skull base. Images are reviewed in the axial, sagittal, and coronal p lanes. 3-D MIPS images are created and assessed. IV contrast was administered without complication. A ll measurements were calculated based on NASCET criteria. A dose lowering technique was utilized adh ering to the principles of ALARA. FINDINGS: Thoracic aorta: There is mild atherosclerotic calcification of the thoracic aorta. Visualized portion s of the thoracic aorta are normal in caliber. The aortic arch demonstrates standard 3-vessel anatomy . Right carotid arterial system: The right common carotid artery is widely patent, as are the right int ernal and external carotid arteries. Minimal plaque is seen in the carotid bulb. Left carotid arterial system: The left common carotid artery is widely patent, as are the left international trade teacher al and Carotid arteries. Mild calcified plaque is noted in the carotid bulb. Vertebral arteries: The vertebral arteries are widely patent and codominant. Subclavian arteries: Widely patent bilaterally. Intracranial vasculature: The visualized brain parenchyma the skull base is normal in appearance. Jugular veins: Widely patent bilaterally. Brain parenchyma: The visualized brain parenchyma the skull base is within normal limits. Lung apices: Mild emphysematous change is noted at the apices. The lung parenchyma is otherwise clear as imaged. Soft tissues: The visualized pharyngeal soft tissues are normal in appearance noting angiographic pha se technique. The oropharyngeal airway appears widely patent. The thyroid gland is heterogeneous. The salivary glands are normal in appearance. No cervical lymphadenopathy is seen. Skeletal structures: The skeletal structures are osteopenic. The visualized calvarium at the skull ba se appears intact. The imaged cervical spine is maintained noting multilevel spondylosis. No lytic or blastic lesion is seen. Sinuses and mastoids: Trace mucosal thickening is noted in the left maxillary antrum. The remaining v isualized paranasal sinuses are clear. The mastoid air cells are well pneumatized. IMPRESSION: Unremarkable CT angiogram of the neck. No change from 02/24/2020. ACT 112: Negative or not required by law. Electronically signed by: Mathieu Ruth M.D. 12/20/2020 7:23 AM
[2020-12-20] MEDS ORDERED: ASPIRIN CHEW 324 MG PO STA (07:39)
--- NOTE | 2020-12-20 07:39 | CT Scan Report ---
CT angio head w con CLINICAL HISTORY: Headache, dizziness, visual changes TECHNIQUE: CT angiography of the head was performed in a dynamic helical fashion during intravenous a dministration of 118 cc of Optiray 320. MIP imaging was performed. A dose lowering technique was util ized adhering to the principles of ALARA. CT DOSE: 1172.11 mGy.cm COMPARISON STUDY: MRI the brain dated 10/22/2019 FINDINGS: There are no major intracranial branch occlusions. There is no evidence for major intracran ial stenosis. The dural venous sinuses appear patent. There is a small 3 mm aneurysm versus infundibu lum at the M2 segment of the right MCA IMPRESSION: 1. 3 mm aneurysm versus infundibulum at the M2 segment of the right MCA. 2. No evidence of major intracranial branch occlusion ACT 112: Negative or not required by law. Electronically signed by: Alex Olivo M.D. 12/20/2020 7:37 AM
--- NOTE | 2020-12-20 07:57 | History & Physical Report ---
Date of Service December 20, 2020 Assessment & Plan (1) CVA (cerebral vascular accident): MRI scan 12/20/2020 IMPRESSION: 1. No evidence of intracranial mass 2. Suspected tiny acute/subacute infarct within the right centrum semiovale 3. Scattered old lacunar infarcts. Patient was given full dose aspirin and ARB continue on 81 mg a day. Should be started on Lipitor 40 mg a day. She will be continued on Xarelto. Her blood pressure is reasonable at this point in time. Patient will have neurology consultation. pt has an echo with a patent foramen ovale Patient had a head and neck CT angiogram performed in the [facility] CT angiogram of the neck -CT angiogram of the brain shows a 3 mm aneurysm versus infundibulum of the M2 segment of the right MCA no evidence of major intracranial branch occlusion PT OT are ordered and patient will have a bedside speech screen (2) Cerebral aneurysm: As mentioned above this is visualized has previously been seen by neurosurgery (3) DVT (deep venous thrombosis): Patient chronic on Xarelto maintenance therapy (4) Hypothyroidism: Patient remains on Synthroid, TSH is normal History of Present Illness Primary Care Provider: Sergio Siu MD 75-year-old female with previous history of atypical migraines who presents with dizziness some speech changes perhaps some intermittent vertigo. This began approximately midnight accompanied by diaphoresis. Patient in the past to see neurology for atypical migraines and also had a referral to [facility] for possible intracranial aneurysm which they felt was small and was amenable to serial imaging. In the emergency department she had imaging of her brain including a CT scan and MRI scan which eventually showed a small acute to subacute infarct in the right side centrum semiovale. Patient currently takes Xarelto therapy for history of veno thromboembolism, x2 thromboembolism she was given an aspirin in the ER. Her vital signs are otherwise stable Allergies Allergy/AdvReac Type Severity Reaction Status Date / Time verapamil AdvReac Intermediate hypotension Verified 12/20/20 02:24 Home Medications Medication Instructions Recorded Confirmed Type cholecalciferol (vitamin D3) 1,000 unit PO DAILY 06/02/18 12/20/20 History [Vitamin D3] levothyroxine 125 mcg tablet 125 mcg PO DAILY #90 tab 09/19/20 12/20/20 Rx rivaroxaban 20 mg tablet 20 mg PO DAILY #90 tab 12/06/20 12/20/20 Rx Past Med/Surg History Medical History Asthma Dermatographia Diverticulosis Essential hypertriglyceridemia History of blood clots History of broken leg History of mitral valve insufficiency Hypothyroidism Internal hemorrhoids Osteopenia Transient ischemic attack, acute Tubular adenoma of colon Vitamin D deficiency Surgical History History of tonsillectomy Family History Sister Breast cancer Hypertension Uncle Stroke Mother Diabetes Brother Hypertension Other Kidney stone Seizures Denies family history of Colon cancer Ovarian cancer Prostate cancer Myocardial infarction Social History Smoking Status: Never smoker Second Hand Exposure: No; Hx Alcohol Use: No Hx Substance Use: No Preferred Language: Urdu Communication Ability: Effective Visual Impairment: No Limitations Hearing Ability: Normal [place] Required: No Beliefs That Will Affect Care: None marital status: Current Living Situation: Family current occupational status: retired Feels Safe at Home: Yes Dental Care, Regularly: Yes Physical Activity Frequency: Daily Seatbelt Use: always Sunscreen Use: Yes Assistive Devices: Glasses Review of Systems Review of Systems: Mild distress and fatigue, symptoms have resolved that originated the patient come to the ER headache, blurry or double vision Mild dysarthria but no swallowing issues no chest pain, pressure or palpitations no shortness of breath, cough or wheezes no abdominal pain, nausea or vomiting, diarrhea or constipation no dysuria, hematuria or frequency no focal joint pain or swelling no back pain, CVA tenderness or radicular pain no bruising, bleeding or rashes no focal signs of weakness or numbness or altered sensation no complaints of anxiety or depression.. Physical Exam Physical Exam: The patient appeared well nourished and normally developed. Vital signs as documented. Head exam is normocephalic atraumatic no scleral icterus Neck is without JVD, thyromegaly, or carotid bruits. Lungs are clear to auscultation, no focal loss of breath sounds Cardiac exam, Rhythm is regular.. No murmurs, rubs or gallops. Abdominal exam reveals normal bowel sounds, soft non tender, no masses Extremities are nonedematous and both pedal pulses are present Neurologic exam is alert and oriented, no focal loss of strength or sensation Skin is without bruises or rashes Psychologically is without concerns for anxiety or depression Results & Data Results & Data ([facility]) Vital Signs (Past 12 Hours) Vital Signs Temp Pulse Pulse Resp BP BP Pulse Ox 12/20/20 07:32 74 16 151/83 H 96 12/20/20 06:13 94 12/20/20 06:12 150/94 H 97 12/20/20 04:40 72 16 12/20/20 04:32 84 23 12/20/20 04:20 78 18 97 12/20/20 04:10 67 16 97 12/20/20 04:00 70 15 146/81 H 96 12/20/20 03:50 70 17 94 12/20/20 03:40 69 19 95 12/20/20 03:35 73 16 153/80 H 96 12/20/20 02:30 70 15 96 12/20/20 02:20 63 20 97 12/20/20 02:13 65 15 98 12/20/20 02:10 75 19 180/94 H 100 12/20/20 01:41 97.2 F L 70 18 182/88 H 98 PG Care Time/CCT Total # of Minutes Spent Total Time Spent with Patient: Total time spent is greater than 50% in coordination of care (as documented) at patient's floor/unit and/or counseling patient: Coding Level of Care Code 25817 Initial Inpt Care Lvl 3 Diagnoses CVA (cerebral vascular accident) I63.9 Cerebral aneurysm I67.1 DVT (deep venous thrombosis) I82.409 Hypothyroidism E03.9
[2020-12-20 08:34] LABS: Influenza A virus by PCR Negative (Neg); Influenza B virus by PCR Negative (Neg); RSV by PCR Negative (Neg); SARS CoV2 RNA(COVID-19) InHosp NEGATIVE (Negative)
--- NOTE | 2020-12-20 10:15 | Neurology Consultation ---
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 These would be migraine equivalents. Her episode early this morning is likely a basilar migraine. The vertigo, lightheadedness, double vision, diaphoresis, flushing, and other symptoms is all consistent with this. She did have a very mild headache occipitally following this. All symptoms have resolved and has a normal neurologic examination without focal findings, meningeal signs, or encephalopathy. The very small deep white matter subacute (possibly acute) CVA noted on MRI today is likely not related to any of her symptoms currently. She does have significant chronic small vessel ischemia however. I note some hypertension and history of dyslipidemia. I do not believe anything else is responsible for her symptoms last night, although some of her symptoms are reminiscent of what could happen with a pheochromocytoma. 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 Recommendations: 1. 81 milligram aspirin tablet daily. This will help prevent small vessel ischemic disease which the anticoagulation does not address. 2. Continue anticoagulation in lieu of her history of deep venous thrombosis. 3. Consider 24 hour urine for catecholamines ( epinephrine, norepinephrine, dopamine, metanephrine, VMA, and 5 HIAA ). This could be done as an outpatient. 4. Echocardiogram. 5. increase activity as able. 6. my drug of choice for preventing basilar migraine is verapamil. Apparently on 120 milligrams ER once daily her blood pressure became too low. Her blood pressure currently is running a little bit high. We could consider a low dose of immediate release verapamil, such as 40 milligrams twice daily. this will help bring the blood pressure down to a mean arterial pressure of approximately 100. 7. There is nothing further to do regarding the aneurysm 8. The patient would be a statin candidate for stroke prevention also. I do not believe she has to be a high dose statin candidate we can check her Fasting lipid panel. Overall, I spent a total of 75 minutes with this case including review of records, review of MRI films, direct evaluation the patient at bedside, and discussing with the case with the patient and her spouse at bedside, RN at bedside, and Dr. De Jesus, including differential diagnosis and treatment options. History of Present Illness Reason for Consultation: Patient is a 75-year-old, who I was asked to see at the request of Dr. De Jesus, for neurologic consultation regarding stroke. Requesting Physician: Dr. De Jesus Attending Physician: Dr. De Jesus History of Present Illness this patient has a history of DVT several years ago requiring anticoagulation. She saw Dr. Ford in February of 2024 frequent episodes, the have been going on at least a couple years consisting of sudden onset of vertigo and lightheadedness, dysarthria, and double vision. These episodes would last about 10 minutes and resolve. Sometimes she would have a nonspecific headache afterwards but most the time she would not have headaches. Occasionally, she would have more intense episodes but most of the episodes were very mild and she could get as many as 3 or 4 per week over the last year consisting of some flashing lights and blind spots with double vision lasting less than 10 minutes followed mostly without any headache or pain. An MRI of the brain in October of 2019 revealed [id number]-[id number] old small vessel ischemic changes only. She last saw Dr. Ford in August of 2020 and his diagnosis was basilar migraines and ocular migraines. He had initiated verapamil ER 120 milligrams once daily, back in the summer, but it made her blood pressure low and was discontinued After 2 months. Topiramate was then initiated but I gave her side effects. By August she was on no medications to prevent migraines. She had some ocular / vision procedures which created less overall episodes last year. The patient has a history of a 3 millimeter right middle cerebral artery area aneurysm which is followed by Dr. Guido at [facility]. There is no need for surgery and this is going to be followed. Patient was watching basketball last evening December 19. Around midnight last night she lean forward to get out of the chair and had the sudden onset of vertiginous feelings with lightheadedness. She felt very hot in general and sweaty. Her thought that she might have flushed. She wondered about some double vision but she said she had her eyes closed did notice very much. This was very different from her typical spells. The worst of it lasted less than 10 minutes or so and then resolved. Following this she had some fatigue and "fuzzy" feeling lasting another 30-60 minutes and that completely resolved. She may have had a very mild occipital headache following this with this is not present currently. She never had any new symptoms again. She arrived to the emergency room December 20 at 01:41, With a temperature 36.2, pulse 70 and regular, respiratory 18, blood pressure 182/88, and O2 saturation 98 percent. Her neurologic examination was unremarkable and she had NIH stroke scale of 0. CBC and Chem profile were largely unremarkable although glucose was 110 and BUN and creatinine were mildly elevated. TSH was borderline at 4 0.3 and urinalysis was unremarkable. CT scan of the head showed old ischemic look towards. CT angiography of the head and neck were unremarkable although there is an incidental right middle cerebral artery aneurysm of 3 millimeters, unchanged from previous ( M2 segment). MRI of the brain revealed nuza-ub-rblejlfu old small vessel ischemic change and small lacune is as noted before and a very small, 4 millimeter, hyperintensity on diffusion consistent with a subacute to acute CVA in the deep white matter in the right hemisphere. I reviewed these films this morning, the patient is asymptomatic and has no Headache, pain, dizzine ss, vision issues, weakness, numbness, vertigo, speech, mentation issues. Allergies Allergy/AdvReac Type Severity Reaction Status Date / Time verapamil AdvReac Intermediate hypotension Verified 12/20/20 02:24 Home Medications Medication Instructions Recorded Confirmed Type cholecalciferol (vitamin D3) 1,000 unit PO DAILY 06/02/18 12/20/20 History [Vitamin D3] levothyroxine 125 mcg tablet 125 mcg PO DAILY #90 tab 09/19/20 12/20/20 Rx rivaroxaban 20 mg tablet 20 mg PO DAILY #90 tab 12/06/20 12/20/20 Rx Patient History Medical History Asthma Dermatographia Diverticulosis Essential hypertriglyceridemia History of blood clots History of broken leg History of mitral valve insufficiency Hypothyroidism Internal hemorrhoids Osteopenia Transient ischemic attack, acute Tubular adenoma of colon Vitamin D deficiency Surgical History History of tonsillectomy Family History Sister Breast cancer Hypertension Uncle Stroke Mother Diabetes Brother Hypertension Other Kidney stone Seizures Denies family history of Colon cancer Ovarian cancer Prostate cancer Myocardial infarction Social History Smoking Status: Never smoker Second Hand Exposure: No; Hx Alcohol Use: No Hx Substance Use: No Preferred Language: Frisian Communication Ability: Effective Visual Impairment: No Limitations Hearing Ability: Normal Beliefs That Will Affect Care: None marital status: Current Living Situation: Family current occupational status: retired Feels Safe at Home: Yes Dental Care, Regularly: Yes Physical Activity Frequency: Daily Seatbelt Use: always Sunscreen Use: Yes Review of Systems Constitutional: no fever, no fatigue and no weakness Eyes: no diplopia, no eye pain and no worsening vision Ear, Nose, Mouth, Throat: no ear pain, no tinnitus, no hearing loss, no dizziness, no hoarseness and no dysphagia Respiratory: no cough and no dyspnea Cardiovascular: no chest pain, no palpitations and no lightheadedness Gastrointestinal: no abdominal pain, no nausea and no vomiting Genitourinary: no dysuria, no urinary frequency and no urinary incontinence Musculoskeletal: no back pain, no neck pain, no radicular pain, no joint pain and no myalgia Integumentary: no rash and no lesions Neurologic: no gait abnormality, no localized weakness, no generalized weakness, no tingling, no numbness, no tremor(s), no abnormal movements, no headache(s), no abnormal speech, no confusion and no memory loss Psychiatric: no depression, no irritability, no anxiety, no difficulty concentrating, no confusion and no hallucinations Endocrine: no fatigue and no flushing Hematologic / Lymphatic: no easy bleeding and no easy bruising Allergy / Immunological: no urticaria and no problem reported Exam (Neuro) Physical Exam: The patient is right-handed. The patient is awake, alert, and attentive. Speech is normal without any aphasia or dysarthria. She can name objects, repeat phrases, and has normal spontaneous speech. Mentation and thought processes are intact, with orientation to person, place and time, and normal fund of knowledge. Attention and concentration are normal. Mood and affect are normal and appropriate. General appearance and grooming are normal. Short and long-term memory are intact. The discs are sharp with positive venous pulsations bilaterally. There are no exudates, hemorrhages, or blood vessel changes seen. Pupils are 4 mm bilaterally and reactive to light. Extraocular eye muscles are intact without nystagmus. Visual acuity and visual rubalcava seem normal grossly to confrontation. There are no deficits to sensation in the face in all 3 distributions of the fifth cranial nerve bilaterally. Corneal reflexes are positive bilaterally. Facial strength and symmetry was normal bilaterally. Hearing seems normal to whisper and finger rub bilaterally. Palate moves well without asymmetry. There is normal sternocleidomastoid and trapezius (shoulder shrug) strength bilaterally. Tongue is midline with good strength bilaterally. Neck has a full range of motion without discomfort. There are no cervical bruits bilaterally. There are no cranial or ocular bruits. Heart is without murmur. There is a regular rhythm and rate. Cervical, thoracic, and lumbar spine are nontender to palpation. Gait was not tested but stance sitting up in bed is unremarkable. With outstretched arms there is no drift. There are no resting, postural, or action tremors. There is no ataxia with finger to nose testing. There is good facility in the hands. No other abnormal involuntary movements are noted. Motor strength is 5/5 diffusely in the arms bilaterally including deltoids, biceps, triceps, brachioradialis, wrist flexors and extensors, director marketing, and intrinsic hand muscles. Motor strength is 5/5 diffusely in the legs bilaterally including hip flexors, quadriceps, hamstrings, gastrocnemius, tibialis anterior, tibialis posterior, and Peroneii muscles. Toe extensors are normal and there is good bulk in the extensor digitorum brevis muscles bilaterally. The limbs have good tone without rigidity or spasticity. There is no atrophy noted in the muscles. Muscle bulk is normal, there is no tenderness to palpation, no myotonia to percussion, and no fasciculations seen. Sensory examination is intact to touch and pin throughout all 4 limbs diffusely. Vibratory and position sense testing is normal bilaterally as well. There is normal sensation to temperature. Reflexes are 1/4 in the biceps, triceps, brachioradialis, quadriceps, and Achilles tendons bilaterally. There is no clonus bilaterally. Toes are downgoing with plantar stimulation On the right and questionable upgoing/neutral on the left. Peripheral pulses are present and of normal quality distally in all 4 limbs. There is no peripheral edema noted in the limbs. Results & Data ([facility]) Vital Signs (Past 12 Hours) Vital Signs Temp Pulse Pulse Resp BP BP Pulse Ox 12/20/20 08:34 77 16 154/87 H 96 12/20/20 07:32 74 16 151/83 H 96 12/20/20 06:13 94 12/20/20 06:12 150/94 H 97 12/20/20 04:40 72 16 12/20/20 04:32 84 23 12/20/20 04:20 78 18 97 12/20/20 04:10 67 16 97 12/20/20 04:00 70 15 146/81 H 96 12/20/20 03:50 70 17 94 12/20/20 03:40 69 19 95 12/20/20 03:35 73 16 153/80 H 96 12/20/20 02:30 70 15 96 12/20/20 02:20 63 20 97 12/20/20 02:13 65 15 98 12/20/20 02:10 75 19 180/94 H 100 12/20/20 01:41 36.2 C L 70 18 182/88 H 98 PG Care Time/CCT Total # of Minutes Spent Total Time Spent with Patient: Total time spent is greater than 50% in coordination of care (as documented) at patient's floor/unit and/or counseling patient: Coding Level of Care Code 66249 Initial Inpt Care Lvl 3 Diagnoses CVA (cerebral vascular accident) I63.9 Basilar migraine G43.109 Vertigo R42 Diplopia H53.2 Time Spent (min) 75
--- NOTE | 2020-12-20 13:30 | XCELERA ---
[id number]
[2020-12-20] MEDS ORDERED: ONDANSETRON INJ 2 MG/ML 2 ML VIAL IV PRN (13:45)
[2020-12-20] MEDS ORDERED: ALUMINUM/MAGNESIUM SUSP 30 ML UDC PO PRN (13:45)
[2020-12-20] MEDS ORDERED: ACETAMINOPHEN 325 MG TAB PO PRN (13:45)
[2020-12-20] MEDS ORDERED: PHARMACIST DISCHARGE MED REC CONSULT PRN (13:45)
[2020-12-20] MEDS ORDERED: MECLIZINE HCL 25 MG TAB PO PRN (14:00)
--- NOTE | 2020-12-20 14:16 | Electrocardiogram Report ---
Test Reason : Blood Pressure : / mmHG Vent. Rate : 070 BPM Atrial Rate : 070 BPM P-R Int : 192 ms QRS Dur : 090 ms QT Int : 418 ms P-R-T Axes : 032 -11 017 degrees QTc Int : 451 ms Sinus rhythm Premature ventricular complexes Voltage criteria for left ventricular hypertrophy Abnormal ECG No previous ECGs available Confirmed by Buzz Inman ([id number]) on 12/20/2020 2:15:50 PM Referred By: REFERRED SELF Confirmed By:Buzz Inman
[2020-12-20] MEDS: ATORVASTATIN 40 MG TAB PO SCH (15:58)
[2020-12-20] MEDS: RIVAROXABAN 20 MG TAB PO SCH (15:58)
[2020-12-20] MEDS: VERAPAMIL HCL 40 MG TAB PO SCH ×2 (15:59→20:17)
[2020-12-20] MEDS: ASPIRIN 81 MG ECTAB PO SCH (15:59)
[2020-12-20] MEDS: CHOLECALCIFEROL 1,000 UNITS 25 MCG TAB PO SCH (15:59)
[2020-12-20] MEDS: LEVOTHYROXINE SODIUM 125 MCG TABLET PO SCH (15:59)
[2020-12-21] MEDS: LEVOTHYROXINE SODIUM 125 MCG TABLET PO SCH (07:11)
[2020-12-21 07:19] LABS: Basophils # (auto) 0.02 K/uL (0-0.2); Basophils % (auto) 0.3 %; Eosinophils # (auto) 0.18 K/uL (0-0.5); Eosinophils % (auto) 2.7 %; Hematocrit (blood only) 40.8 % (37-47); Hemoglobin 13.4 g/dL (12.0-16.0); Immature Granulocytes # (auto) 0.01 K/uL (0.00-0.02); Immature Granulocytes % (auto) 0.2 %; Lymphocytes # (auto) 1.96 K/uL (1.2-3.4); Lymphocytes % (auto) 29.5 %; Mean Corpuscular Hemoglobin 29.5 pg (25-34); Mean Corpuscular Hgb Conc 32.8 g/dL (32-36); Mean Corpuscular Volume 89.7 fL (80-100); Mean Platelet Volume 10.9 fL (7.4-10.4); Monocytes # (auto) 0.45 K/uL (0.11-0.59); Monocytes % (auto) 6.8 %; Neutrophils # (auto) 4.03 K/uL (1.4-6.5); Neutrophils % (auto) 60.5 %; Platelet Count 116 K/uL (130-400); RDW Coefficient of Variation 12.9 % (11.5-14.5); RDW Standard Deviation 42.4 fL (36.4-46.3); Red Blood Count 4.55 M/uL (4.2-5.4); White Blood Count 6.65 K/uL (4.8-10.8)
[2020-12-21 07:46] LABS: BUN Creatinine Ratio 16.8 (10-20); Calcium 8.9 mg/dl (8.5-10.1); Creatinine Clr Calc Pharmacy 33.5 ml/min; Est GFR (African American) 37.3; Est GFR (Non-African American) 32.2; Potassium 4.3 mmol/L (3.5-5.1)
[2020-12-21] MEDS: ASPIRIN 81 MG ECTAB PO SCH (08:33)
[2020-12-21] MEDS: ATORVASTATIN 40 MG TAB PO SCH (08:33)
[2020-12-21] MEDS: RIVAROXABAN 20 MG TAB PO SCH (08:33)
[2020-12-21] MEDS: CHOLECALCIFEROL 1,000 UNITS 25 MCG TAB PO SCH (08:33)
[2020-12-21] MEDS: VERAPAMIL HCL 40 MG TAB PO SCH (08:34)
[2020-12-21 08:49] LABS: Estimated Average Glucose 126 mg/dl
[2020-12-21] MEDS ORDERED: STROKE PATIENT DISCHARGE STA (10:58)
[2020-12-21] MEDS ORDERED: ACETAMINOPHEN 500 MG TAB PO ONE (10:59)
--- NOTE | 2020-12-21 11:49 | Pharmacy Report ---
Pharmacist Stroke Counseling - Date of Service December 21, 2020 - Scope: Pharmacy has been consulted to provide medication discharge counseling for this patient admitted with ischemic stroke as per the Pharmacist Discharge Counseling for Stroke Patients Protocol. - Medications on Discharge: Home Medications Medication Instructions Recorded Confirmed cholecalciferol (vitamin D3) 1,000 unit PO DAILY 06/02/18 12/20/20 [Vitamin D3] New Rx's Medication Instructions Recorded levothyroxine 125 mcg tablet 125 mcg PO DAILY #90 tab 09/19/20 rivaroxaban 20 mg tablet 20 mg PO DAILY #90 tab 12/06/20 aspirin 81 mg PO QAM #90 tab 12/21/20 atorvastatin 40 mg PO QAM #30 tab 12/21/20 - Action: The above medications, specifically ones for stroke treatment/prophylaxis, have been reviewed in detail with the patient and/or patient sales representative public utilities(s) prior to discharge. This includes indication, common adverse reactions, drug interactions, and medication administration. Medication counseling has been employed using the teach-back method to ensure understanding. - Outcome: The patient and/or patient sales representative public utilities(s) have demonstrated understanding of the medications. Additional comments: - No barriers to medical compliance identified. - Pillbox accepted by patient. Thank you for allowing pharmacy to be involved in the care of this patient. Please call [phone] with any additional questions
--- NOTE | 2020-12-21 16:50 | Discharge Summary ---
Date of Service December 21, 2020 Admission HPI Per Admitting Provider 75-year-old female with previous history of atypical migraines who presents with dizziness some speech changes perhaps some intermittent vertigo. This began approximately midnight accompanied by diaphoresis. Patient in the past to see neurology for atypical migraines and also had a referral to [facility] for possible intracranial aneurysm which they felt was small and was amenable to serial imaging. In the emergency department she had imaging of her brain including a CT scan and MRI scan which eventually showed a small acute to subacute infarct in the right side centrum semiovale. Patient currently takes Xarelto therapy for history of veno thromboembolism, x2 thromboembolism she was given an aspirin in the ER. Her vital signs are otherwise stable Principal Diagnosis subacute cva patent foramen ovale Discharge Exam The patient appeared well nourished and normally developed. Vital signs as documented. Head exam is normocephalic atraumatic no scleral icterus Neck is without JVD, thyromegaly, or carotid bruits. Lungs are clear to auscultation, no focal loss of breath sounds Cardiac exam, Rhythm is regular.. No murmurs, rubs or gallops. Abdominal exam reveals normal bowel sounds, soft non tender, no masses Extremities are nonedematous and both pedal pulses are present Neurologic exam is alert and oriented, no focal loss of strength or sensation Skin is without bruises or rashes Psychologically is without concern Discharge Data Allergies Allergy/AdvReac Type Severity Reaction Status Date / Time verapamil AdvReac Intermediate hypotension Verified 12/20/20 02:24 Consultations 12/20/20 07:39 ED Decision to Admit Stat 12/20/20 13:34 Consult Neurology Routine 12/21/20 10:59 Consult Health Information Management Routine Ordered Studies 12/20/20 01:56 CT head/brain wo con Urgent 12/20/20 02:00 CT angio head w con Urgent CT angio neck with con Urgent 12/20/20 04:06 MR brain wo/w con Urgent Hospital Course (1) CVA (cerebral vascular accident): MRI scan 12/20/2020 IMPRESSION: 1. No evidence of intracranial mass 2. Suspected tiny acute/subacute infarct within the right centrum semiovale 3. Scattered old lacunar infarcts. Patient was given full dose aspirin and ARB continue on 81 mg a day. Should be started on Lipitor 40 mg a day. She will be continued on Xarelto. Her blood pressure is reasonable at this point in time. Did see neurology consultation and will follow with Dr Ford pt has an echo with a patent foramen ovale Patient had a head and neck CT angiogram performed in the [facility] CT angiogram of the neck -CT angiogram of the brain shows a 3 mm aneurysm versus infundibulum of the M2 segment of the right MCA no evidence of major intracranial branch occlusion (2) Cerebral aneurysm: As mentioned above this is visualized has previously been seen by neurosurgery, will folllow up with [facility] (3) DVT (deep venous thrombosis): Patient chronic on Xarelto maintenance therapy (4) Hypothyroidism: Patient remains on Synthroid, TSH is normal Total Time Total Time Spent Total Time Spent (In Minutes): greater than 30 minutes were required to prepare this summary Discharge Plan Discharge Items Patient Disposition: Home - Self-Care Reason For Visit: ACUTE CVA Discharge Diagnosis: cva, cerebrovascular accident patent foramen ovale Activity: Resume your previous activity Non-emergency contact: Primary Care Provider, Specialist and Neurologist Call non-emergency contact if: you have any medication questions and your symptoms worsen Follow-up/Referrals: ProSergio MD [Primary Care Provider] - 01/04/21 2:00 pm Diet: Heart Healthy Addtl Attending Provider Instructions: About Patent Foramen Ovale (PFO) Definition Patent foramen ovale (PFO) is a hole between the left and right atria (upper chambers) of the heart. This hole exists in everyone before , but most often closes shortly after being born. PFO is what the hole is called when it fails to close naturally after a baby is born. A foramen ovale allows blood to go around the lungs. A baby's lungs are not used when it grows in the womb, so the hole does not cause problems in an unborn . The opening is supposed to close soon after , but sometimes it does not. In about 1 out of 4 people, the opening never closes. If it does not close, it is called a PFO. Infants with a PFO and no other heart defects do not have symptoms. Some adults with PFOs also suffer from migraine headaches. Rarely, people with PFOs may have a higher rate of a certain type of stroke (called paradoxical thromboembolic stroke). In a paradoxical stroke, a blood clot that develops in a vein (often leg veins) breaks free and travels to the right side of the heart. Normally, this clot would then continue to the lungs, but in someone with a PFO, the clot could pass through the hole to the left side of the heart. It may then be pumped out to the body, travel to the brain and become stuck there, preventing blood flow to that part of the brain (stroke). Pending Studies at Discharge: No Stand-Alone Forms: Medications to Prevent Stroke, [facility], Smoking Cessation Medications and DC Order Prescriptions: New atorvastatin 40 mg Tablet 40 mg PO QAM Qty: 30 RF: 5 aspirin 81 mg Tablet,Delayed Release (Dr/Ec) 81 mg PO QAM Qty: 90 RF: 3 Continued levothyroxine 125 mcg tablet 125 mcg PO DAILY Qty: 90 RF: 3 Xarelto 20 mg tablet 20 mg PO DAILY Qty: 90 RF: 3 cholecalciferol (vitamin D3) [Vitamin D3] 1,000 unit Capsule 1,000 unit PO DAILY RF: 0 Discharge Orders: Discharge Order (Routine); Ordered 12/21/20 Ordered By: Indio Wesley/Other Patient Handouts: 5 Steps for Eating Healthier, A1C Admission Data Admit Date/Time: 12/20/20 08:43 Attending Provider: Indio De Jesus Admit Provider: Indio De Jesus Primary Care Provider: Sergio Siu Other Providers: Indio De Jesus ; Vincent Angel Other Interventions: Discharge Summary Assessment (RN) Last Done: 12/21/20 12:37 Coding Level of Care Code D/C Day Management >30 mins Diagnoses CVA (cerebral vascular accident) I63.9 Cerebral aneurysm I67.1 DVT (deep venous thrombosis) I82.409 Hypothyroidism E03.9
== END 2020-12-21 13:23 | disposition home or self-care (01) | DRG 65 ==
LOC: ED 01:38 → EDINP 08:43 → 2S 13:31